=== PATIENT | female | born 1945 | race Two or more races ===

== ENCOUNTER → 2017-01-07 | Outpatient (CLI) | payer MEDICARE ==
--- NOTE | 2017-01-07 08:34 | RAD ---
EXAM: Chest, 2 views. HISTORY: Cough and congestion. COMPARISON: None. FINDINGS: Frontal and lateral views of the chest are obtained. There is linear lingular opacity likely due to pleural parenchymal scarring. There is no consolidation, effusion or pneumothorax. The heart is normal in size. There is increased thoracic kyphosis. There are left axillary clips. IMPRESSION: Linear opacity within the lingula likely due to scarring. The possibility of ligament or infiltrate is not excluded. Follow-up can be performed to assess for stability or resolution.
== END | disposition home or self-care (01) ==
LOC: DXRADRC 07:58
PROVIDERS: ATTEND Physician Assistant Medical
DX: R09.89 Other specified symptoms and signs involving the circulatory and respiratory systems (principal); R05 Cough; R68.83 Chills (without fever); R11.0 Nausea; R51 Headache
CPT/HCPCS: 71020

== ENCOUNTER → 2017-06-25 | Outpatient (CLI) | payer MEDICARE ==
[2017-06-25 11:06] LABS: CALCIUM 9.4 mg/dL (8.5-10.1); CREATININE 1.1 mg/dL (0.6-1.0); GFR 48.7; POTASSIUM 4.6 mmol/L (3.5-5.1)
== END | disposition home or self-care (01) ==
LOC: LAB 09:37
PROVIDERS: ATTEND Internal Medicine Cardiovascular Disease
DX: R94.30 Abnormal result of cardiovascular function study, unspecified (principal)
CPT/HCPCS: 36415; 80048

== ENCOUNTER → 2021-12-31 | Outpatient (CLI) | payer MEDICARE, OTHER ==
[2021-12-31 13:57] LABS: ALBUMIN 3.9 g/dL (3.4-5.0); ALBUMIN/GLOBULIN RATIO 1.3 (1.0-1.7); CALCIUM 8.8 mg/dL (8.5-10.1); CREATININE 1.2 mg/dL (0.6-1.0); GFR 43.6; POTASSIUM 4.6 mmol/L (3.5-5.1); TOTAL BILIRUBIN 1.3 mg/dL (0.2-1.0); TOTAL PROTEIN 6.8 g/dL (6.4-8.2)
[2022-01-01 18:18] LABS: CHOLESTEROL/HDL RATIO 1.8; THYROID STIM HORMONE (TSH) 3.332 uIU/mL (0.358-3.740)
== END ==
LOC: LAB 12:39
PROVIDERS: ATTEND Internal Medicine Cardiovascular Disease
DX: E78.00 Pure hypercholesterolemia, unspecified (principal); I48.0 Paroxysmal atrial fibrillation
CPT/HCPCS: 36415; 80053; 80061; 84443